=== PATIENT | female | born 1985 | race Caucasian/White ===

== ENCOUNTER 2022-01-13 10:40 | Emergency (ER) | payer OTHER ==
[~2022-01-13] VITALS: Ht 162.6 cm; Wt 65.8 kg
[2022-01-13] MEDS ORDERED: SODIUM CHLORIDE 0.9% 1,000 ML IVB ONE (11:00)
[2022-01-13 11:32] LABS: Urine Bacteria NONE SEEN /hpf (None Seen); Urine Blood Negative /uL (Negative); Urine Mucus FEW (None Seen); Urine Specific Gravity 1.022 (1.001-1.035); Urine WBC 1 /hpf (0 - 5)
[2022-01-13 11:47] LABS: Basophils # (auto) 0 10 ^3/uL (0-0.2); Basophils % (auto) 0.4 % (0.0-2.0); Eosinophils # (auto) 0 10 ^3/uL (0-0.8); Eosinophils % (auto) 0.5 % (0.0-7.0); Hematocrit 46.3 % (36.0-46.0); Hemoglobin 15.9 g/dL (12.2-16.2); Lymphocytes % (auto) 21.8 % (10.0-50.0); Mean Corpuscular Hemoglobin 32.2 pg (28.0-32.0); Mean Corpuscular Hgb Conc. 34.3 g/dL (32.0-36.0); Mean Corpuscular Volume 93.9 fL (80.0-100.0); Monocytes # (auto) 0.5 10 ^3/uL (0-1.3); Monocytes % (auto) 5.4 % (0.0-12.0); Neutrophils # (auto) 6.6 10 ^3/uL (1.6-8.6); Neutrophils % (auto) 71.9 % (37.0-80.0); Red Blood Cells 4.93 10^6/uL (4.0-5.20); Red Cell Distribution Width 12.7 % (11.8-14.3); White Blood Cell 9.2 10^3/uL (4.4-10.8)
[2022-01-13 12:08] LABS: Albumin 4.7 g/dL (3.4-5.0); BUN/Creatinine Ratio 15.2; Calcium 9.7 mg/dL (8.5-10.1); Potassium 4.2 mmol/L (3.5-5.1)
[2022-01-13 12:10] LABS: Bilirubin, Total 0.4 mg/dL (0.2-1.0); Total Protein 7.9 g/dL (6.4-8.2)
[2022-01-13] MEDS ORDERED: KETOROLAC TROMETH 30 MG/ML 1ML VIAL IV ONE (14:30)
[2022-01-13] MEDS ORDERED: DOXYCYCLINE 100 MG TAB/CAP PO ONE (15:45)
[2022-01-13] MEDS ORDERED: cefTRIAXone 1GM/50ML D5W 50 ML IV ONE (15:45)
[2022-01-13] MEDS ORDERED: SODIUM CHLORIDE 0.9% 1,000 ML IV ONE (15:45)
[2022-01-13] MEDS ORDERED: metroNIDAZOLE 500MG/100ML 100 ML IV ONE (15:45)
[2022-01-13] MEDS ORDERED: METR500T PO (15:54)
[2022-01-13] MEDS ORDERED: DOXY-332 PO (15:54)
[2022-01-13 18:00] VITALS: BP 122/69
== END 2022-01-13 18:52 | disposition home or self-care (01) ==
LOC: ER 10:40
DX: N73.9 Female pelvic inflammatory disease, unspecified (principal)
CPT/HCPCS: 36415; 80053; 81001; 84702; 85025; 87070; 87210; 87491; 87591; 93005; 96361; 96365; 96366; 96367; 96375; 99285; J0696; J1885; J3490; J7030

== ENCOUNTER 2024-06-14 16:44 | Emergency (ER) | payer OTHER ==
[~2024-06-14] VITALS: Ht 157.5 cm; Wt 70.5 kg
[~2024-06-14 16:44] MED LIST: DOXY100C79 PO; METR500T PO
[2024-06-14 17:50] VITALS: TEMP 98
[2024-06-14] MEDS ORDERED: HYDR-4798 PO ×2 (17:50→17:52)
[2024-06-14] MEDS: MEPERIDINE HCL (50 MG/ML) 1 ML VIAL IM ONE (17:58)
[2024-06-14] MEDS: ONDANSETRON ODT 4 MG TAB PO ONE (17:59)
[2024-06-14 18:30] VITALS: BP 125/73; PULSE 82; RESP 18; O2SAT 99
== END 2024-06-14 18:28 | disposition home or self-care (01) ==
LOC: ER 16:44
DX: S83.8X2A Sprain of other specified parts of left knee, initial encounter (principal); F41.9 Anxiety disorder, unspecified; Z79.899 Other long term (current) drug therapy; W01.198A Fall on same level from slipping, tripping and stumbling with subsequent striking against other object, initial encounter; Y93.89 Activity, other specified; Y92.89 Other specified places as the place of occurrence of the external cause; Y99.8 Other external cause status
CPT/HCPCS: 29505; 73562; 96372; 99283; J2175; Q0162